=== PATIENT | female | born 1990 | race Caucasian/White ===

== ENCOUNTER → 2020-08-11 09:34 | Outpatient (CLI) | payer OTHER, MEDICAID, SELFPAY ==
[2020-08-11 10:44] LABS: Add Manual Diff / Slide Review NO; Basophils Absolute Auto 100 /uL (0-100); Basophils Percent Auto 0.7 % (0-2); Eosinophils Absolute Auto 600 /uL (0-450); Eosinophils Percent Auto 7.4 % (2-4); Hematocrit 35.6 % (36-46); Hemoglobin 12.2 g/dL (12.0-16.0); Lymphocytes Absolute Auto 1600 /uL (1100-4500); Lymphocytes Percent Auto 21.9 % (25-40); Mean Corpuscular HGB Conc 34.2 % (30-36); Mean Corpuscular Hemoglobin 30.6 PG (26-34); Mean Corpuscular Volume 89.6 fL (80-100); Monocytes Absolute Auto 600 /uL (0-900); Monocytes Percent Auto 7.8 % (3-14); Neutrophils Absolute Auto 4700 /uL (1500-7000); Neutrophils Percent Auto 62.2 % (50-75); Platelet Count 208 X10^3/uL (150-400); Red Blood Cell Count 3.97 X10^6/uL (4.0-5.2); Red Cell Distribution Width 12.7 % (11.6-14.8); White Blood Cell Count 7.5 X10^3/uL (4.5-11.0)
[2020-08-11 11:09] LABS: BUN Creatinine Ratio 12.3 (6-22); Blood Urea Nitrogen 9 mg/dL (7-17); Carbon Dioxide 24 mmol/L (22-32); Chloride 106 mmol/L (98-107); Estimated Glomerular Filt Rate > 60.0 mL/min (>60); Glucose 83 mg/dL (70-100); HEMOLYSIS < 15 (0-50); Sodium 137 mmol/L (137-145)
== END ==
PROVIDERS: PCP Family Medicine; Referring Provider Orthopaedic Surgery Orthopaedic Surgery of the Spine; Visit Provider Orthopaedic Surgery Orthopaedic Surgery of the Spine
DX: Z01.812 Encounter for preprocedural laboratory examination (principal)
CPT/HCPCS: 36415; 80048; 85025

== ENCOUNTER → 2020-08-25 08:26 | Outpatient (CLI) | payer OTHER, MEDICAID, SELFPAY ==
[2020-08-26 02:05] LABS: COVID19 Sendout Not Detected (Not Detect)
== END ==
PROVIDERS: PCP Family Medicine; Visit Provider Nurse Practitioner
DX: Z11.59 Encounter for screening for other viral diseases (principal)
CPT/HCPCS: 87635

== ENCOUNTER 2020-08-28 06:06 | Inpatient (IN) | payer OTHER, MEDICAID, SELFPAY ==
[2020-08-20 12:55] VITALS: BMI 27.6
[2020-08-28] VITALS (14 sets, daily range): BP systolic 106–133; BP diastolic 58–92; PULSE 80–98; RESP 8–16; TEMP 36.2–36.8; O2SAT 93–97; BMI 27.3
--- NOTE | 2020-08-28 | DI.RAD.S_ITS ---
PROCEDURE: XR CERVICAL SPINE 2V OR 3V INDICATIONS: ACDF C5-6 C6-7 TECHNIQUE: 3 view(s) of the cervical spine were acquired. COMPARISON: None. FINDINGS: Bones: Anterior fusion plating from C5 through C7 has been performed with interbody disc prosthesis devices at the 2 intervening levels. Soft tissues: No prevertebral soft tissue swelling. IMPRESSION: C5-C7 anterior fusion plating with interbody disc prosthesis devices at the 2 levels. Dictated by: Bib Carias M.D. on 08/28/2020 at 11:08 Approved by: Bib Carias M.D. on 08/28/2020 at 11:09
[2020-08-28] MEDS: LACTATED RINGERS 1,000 ML 42 ML IV ×2 (07:13→09:50)
--- NOTE | 2020-08-28 07:44 | PM.PREOP ---
Pre-operative Note COVID-19 COVID-19 status: Negative Result date/Date tested (Pos, Neg/Pending): 08/26/20 Interval Note History & Physical reviewed/Exam performed by Physician: Yes Changes to H&P: No
[2020-08-28] MEDS: ALBUTEROL 2.5 MG/3 ML NEB (ADULT) INH (07:46)
[2020-08-28] MEDS: CEFAZOLIN 2 GM/100 ML FROZ.PIGGY IV ×3 (08:00→23:33)
--- NOTE | 2020-08-28 08:39 | SUR.OPER ---
Supine on padded OR bed, head on donut, towel roll between shoulders vertically. Arms papoosed with gel pads. Surgeon taped from shoulders to foot of bed. Silk tape to secure patient's head. Legs uncrossed, safety belt at thigh, tape over blanket over lower legs.
[2020-08-28] MEDS: BUPIVACAINE 0.25% W/ EPI 30 ML VIAL INJ (10:45)
--- NOTE | 2020-08-28 10:56 | PM.OP.1 ---
Operative Date/Time/Diagnoses Date of procedure: 08/28/20 Time of procedure: 07:56 Pre-op diagnosis: 1. C5-6, C6-7 spinal stenosis 2. C5-6, C6-7 spondylosis with radiculopathy Post-op diagnosis: same Procedure & Clinicians Procedure: 1. C5-6 C6-7 anterior cervical diskectomy and fusion 2. C5-6 C6-7 anterior interbody cage placement 3. C5-6 C6-7 anterior instrumentation with plate and screw placement in C5-C6 and C7 vertebrae 4. Utilization of microsurgical technique and operating microscope Same procedure as scheduled: Yes Indications: Patient has been having chronic neck pain and worsening cervical radiculopathy. Patient failed multiple conservative management with worsening pain weakness and numbness in her upper extremity. Patient has been having difficulty performing activity of daily living. After discussing risks benefits of treatment options, patient elected proceed with surgery. Surgeon: Faustina Bee Information Technology Program Manager: Coco Ovalle Click Yes if Unassisted: No Anesthesia Type: General Operative Notes Closure Type: primary Specimen(s): none sent Prosthetic devices, grafts, tissues, transplants, or devices: Globus extend plate, PEEK cages Estimated Blood Loss (mL): 50 Blood products transfused: none Procedure in detail: Patient was seen in the preoperative area. Risks and benefits of the surgery was discussed with the patient. Operative consent was obtained and placed in the chart. Patient was then taken to the operative room. Prophylactic antibiotic was given less than 0.5 hr prior to skin incision. General anesthesia was administered. Patient was placed into a supine position on her radiolucent table. Bilateral shoulders were taped down to allow proper C-arm imaging. Anterior cervical area was prepped and draped in a sterile fashion. Time-out was performed at this time. Using lateral C-arm imaging, the level between C5 and C7 was identified and marked on patient's neck. A oblique incision from midline towards medial border of sternocleidomastoid muscle was made. The platysma muscle was incised in line with skin incision. Metzenbaum scissor was used to develop the plane between the medial border of sternocleidomastoid and the strap muscles medially. The carotid sheath and its contents were identified and protected behind the hand-held retractor during the entire case. The plane between the carotid sheath and strap muscles was developed with Metzenbaum scissors. Dissection was made down to the level of the anterior cervical fascia. Longus colli muscle was incised on the anterior aspect of vertebral bodies bilaterally from C5-C7. Spinal needle was placed into the C5-6 disc space and confirmed with lateral C-arm imaging. Using microsurgical technique and operative microscope, anterior cervical diskectomy was performed at C5-6 and C6-7 level. This was done by removing the disc material, removing the anterior and posterior osteophytes posterior longitudinal ligaments along with performing bilateral foraminotomies at both levels. Patient was found to have severe central and foraminal stenosis at both levels. Patient's stenosis was fully decompressed after decompression was completed. After the diskectomy was completed, 2 anterior interbody cages were obtained. The cages were packed with DBM bone grafting material. One cage each along with the bone grafting material was then packed into the interbody spaces from C5-C7 with one cage into each interbody level. After the cages were placed, the anterior cervical plate was stabilized to the C5-C7 vertebrae using 2 screws at each each level. Total 6 screws were placed. After confirming placement of the hardware with AP and lateral C-arm imaging, the screws were locked into the plate using the locking mechanism and torque limiting screwdriver. After the hardware was placed and confirmed with AP and lateral C-arm imaging, the wound was irrigated with sterile normal saline. The platysma muscle and the subcutaneous tissue was closed with 2-0 Vicryl. The skin was closed with 4-0 Monocryl and Steri-Strips. Patient tolerated the procedure well. Patient was transferred recovery room in stable condition. There were no complications. Complications: none Post-operative Condition: stable Disposition: PACU Plan for aftercare: Admit to inpatient hospital
--- NOTE | 2020-08-28 11:14 | SUR.PHASEI ---
1114 medicated x2 for pain by anesthesia on arrival for pain 5-04/15. Dozing intermittently.
[2020-08-28] MEDS: fentaNYL 100 MCG/2 ML INJ IV ×2 (11:26→11:40)
[2020-08-28] MEDS: ACETAMINOPHEN 325 MG TABLET 975 MG PO (11:44)
[2020-08-28] MEDS: OXYCODONE IR 5 MG TABLET PO ×4 (11:45→22:20)
[2020-08-28] MEDS: hydrOXYzine pamoate 25 MG CAPSULE PO ×3 (12:02→22:20)
--- NOTE | 2020-08-28 12:13 | SUR.PHASEI ---
Report called to GARY Serrano. Pt sitting up, looking at her phone. Two clothing bags to the room with her.
--- NOTE | 2020-08-28 12:26 | SUR.PHASEI ---
1213 to room 213, bed down and locked, call light within reach. SCD's. AC RN giving pt's glasses to her, pt has her phone. VSS. Pleasant, oriented, stable.
[2020-08-28] MEDS: SODIUM CHLORIDE 0.9% 1,000 ML 100 ML IV (13:39)
--- NOTE | 2020-08-28 15:37 | PC.NURSE ---
POST OP VSS, TAKING PO REGULAR DIET AND PO FLUIDS WITHOUT DIFFICULTY, NO TROUBLE WITH SWALLOWING, ANT NECK DRSG CDI. SOFT COLLAR IN PLACE. STABLE POST-OP.
[2020-08-28] MEDS: HYDROMORPHONE 0.5 MG INJ 0.2 MG IV ×2 (16:38→23:28)
--- NOTE | 2020-08-28 17:07 | PT.IIE ---
Current Diagnoses Other spondylosis with myelopathy, cervical region (08/28/20) Other spondylosis with radiculopathy, cervical region (08/28/20) Spinal stenosis, cervical region (08/28/20) Surgery Performed Operation Date: 08/28/20 07:45 Actual Procedures p C5-6,C6-7 ACDF w/anterior instrumentation - Faustina Bee MD Surgical History (Last Updated 08/20/20 @ 13:14 by Flora Gonzalez, RN) No history of previous surgery (Acute) [place] teeth removed (Acute) Medical History (Last Updated 08/20/20 @ 13:14 by Flora Gonzalez RN) Anxiety (Acute) Asthma (Acute) Eczema (Acute) GERD (gastroesophageal reflux disease) (Acute) Numbness and tingling (Acute) PTSD (post-traumatic stress disorder) (Acute) Spinal stenosis of cervical region (Acute) Spondylosis of cervical spine with radiculopathy (Acute) Physical Therapy Inpatient Evaluation/Re-Eval M1 PT/OT-IP Prior Functional Status Start: 08/28/20 14:33 Freq: NEEDED Status: Active Protocol: Document 08/28/20 15:38 DE (Rec: 08/28/20 16:42 DE [id number]) Medical Review Prior Functional Status Medical History Reviewed Yes Diet/Fluid Consistency Regular Communication WNL. No deficits noted. Able to make needs known. Mobility and Gait IND at baseline all mobility and amb without AD. Activities of Daily Living and IADL's IND at baseline with all ADLs and IADLs. Prior Functional Level (Other details) Pt reports she was very active prior to this first injury in 2018 Social History Household Members significant other,children Living Arrangements House Number of Floors (Floors) One Floor Number of Stairs To Enter/Railing? 2 platform ARLEY with no railing . No steps inside the house. Home Environment Standard Height Toilet,Walk in Shower,Built-In Shower Seat Home Equipment Hand Held Shower Employment Status Unemployed Additional Social History Comment Pt lives with her boyfriend and 3 children who are 14, 11, and 4 years old. Pt's boyfriend and 2 older children are available to assist if needed. M2 PT-IP Current Condition Start: 08/28/20 14:33 Freq: NEEDED Status: Active Protocol: Document 08/28/20 15:38 DE (Rec: 08/28/20 16:42 DE [id number]) Physical Therapy Current Condition Current Condition Evaluation Date 08/28/20 Treatment Diagnosis Cervical diskectomy and fusion C5-C7; weakness and numbness in UEs Onset Date 08/28/20 Precautions Cervical Spine Precautions Soft Collar for Comfort,No Heavy Lifting,Log Roll Weight Bearing Status Weight Bearing Status Full Weight Bearing M3 PT-IP Subjective Start: 08/28/20 14:33 Freq: NEEDED Status: Active Protocol: Document 08/28/20 15:38 DE (Rec: 08/28/20 16:42 DE [id number]) Subjective Physical Therapy Visit Type Type Initial Evaluation Visit Start Time 14:34 Visit Stop Time 15:15 Total Visit Minutes 41 Notes SPT Shahzad led tx session Under PT Quinn's direct supervision. Number of EVENT TECHNICIAN Visits 0 Physical Therapy Visit Comments Patient Comments I am doing okay Patient Goals To return home. Therapy Pain Assessment Location l neck Pain Behaviors Wincing M4 PT-IP Mobility and Gait Start: 08/28/20 14:33 Freq: NEEDED Status: Active Protocol: Document 08/28/20 15:38 DE (Rec: 08/28/20 16:42 DE [id number]) PT-Bed Mobility Assessment Rolling Type of Rolling Log Rolling Level of Assist Standby Assistance Supine to Sit Supine to Sit Standby Assistance Sit to Supine Sit to Supine Standby Assistance Scooting Scooting to Edge of Bed Standby Assistance PT-Transfer Assessment Sit to and From Stand Sit to and from Stand Standby Assistance Equipment Transfer Assistive Device Gait Belt Transfers Transfer Destination Bed Transfer Technique Stand Step Pivot Transfer Ability Level of Assist Standby Assistance Comments Mobility Comments Pt was lying supine in bed with HOB elevated without soft collar on her neck as PT and SPT arrived. Pt was instructed to wear it before mobilization and also recommended to use it for comfort but at all times in community. Pt performed log rolling to the L to sit up at the EOB with SBA and use of BUE pushing off the bed. BP at EOB was 132/74. Pt then stood up with SBA and use of BUE. Pt amb ~300 ft SBA with FWW and amb ~150 ft SBA without any AD throughout the entire session. Pt was steady and no signs of LOB. After walking ~ 450 ft, pt c/o fatigue. Pt denied dizziness or lightheadedness. Pt performed stair climbing up and down 1 platform step x2. Pt was not looking down at the step when she first tried and then was instructed to bend at the hips to look down at the step. Pt returned to the room and back in bed via log rolling from the L side of the bed. BP at EOB after mobilization was 113 /82. Call light placed within reach. Gait Assessment Gait Gait Assistance Required: Standby Assistance Distance (Feet) 450 Able to Maintain Weight Bearing Status Yes During Gait Assistive Devices Assistive Device Gait Belt,Front Wheeled Walker Orthotic/Prosthetic Devices or Brace: No Gait Deviations General Gait Pattern Within Normal Limits Factors Limiting Gait Function Factors Limiting Gait Function Limited Range of Motion Comments Gait Comments See mobility comments. Stair Climbing Assessment Evaluation Level of Assist On Stairs Standby Assistance Devices Stair Climbing Assistive Devices None Technique/Endurance Stair Climbing Direction Ascend and Descend Stair Climbing Technique Step to Step Number of Steps Climbed 1 Query Text: Stair Climbing Set # Repetitions (reps) 2 Comments Stair Climbing Comments See mobility comments. PT-Balance Assessment Sitting Balance and Reactions Static Sitting Balance Ability Normal Dynamic Sitting Balance Ability Normal Standing Balance and Reactions Static Standing Balance Ability Normal Dynamic Standing Balance Ability Good Device Used none M5 PT-IP Objective Assessments Start: 08/28/20 14:33 Freq: NEEDED Status: Active Protocol: Document 08/28/20 15:38 DE (Rec: 08/28/20 16:42 DE [id number]) Orientation Orientation/Cognition Level of Alertness Alert Orientation Name,Age,Birthday,Month,Date, Year,Day of Week,Place, Situation Language Function Ability No Deficits Noted Safety Awareness Understands Safety Issues Memory Description No Deficits Noted Comments No deficits noted. Gross Range of Motion Upper Extremity ROM Assessment Bilaterally Impaired Impairments B shoulder flexion = 90 deg d/ t pain Lower Extremity ROM Assessment Within Functional Limits Strength Upper Extremity Strength Assessment Bilaterally Impaired Shoulder B flexion 3+/5 with increased pain Elbow WFL Wrist WFL Hand WFL Lower Extremity Strength Assessment Within Functional Limits Coordination Assessment Gross Coordination Gross Coordination WNL Sensation Assessment Sensation Gross Sensation WNL Light Touch Intact Proprioception (Position) Intact Muscle Tone Muscle Tone WNL Yes M6 PT-IP Treatment Start: 08/28/20 14:33 Freq: NEEDED Status: Active Protocol: Document 08/28/20 15:38 DE (Rec: 08/28/20 16:42 DE [id number]) Physical Therapy Treatment Education Education Provided Precautions,Post-Op Packet, Safety M7 PT-IP Assessment and Plan Start: 08/28/20 14:33 Freq: NEEDED Status: Active Protocol: Document 08/28/20 15:38 DE (Rec: 08/28/20 16:42 DE [id number]) PT Summary Assessment and Plan Potential Rehabilitation Potential Excellent Status of Condition at Evaluation Stable Summary Impairments Pain,ROM,Strength,Bed Mobility ,Activity Tolerance Assessment Summary This is a low complexity evaluation for 30 yo female, Francia, s/p C5-6 and C6-7 anterior cervical diskectomy and fusion POD0. PLOF= IND at baseline for all mobility and amb without AD. CLOF= SBA with bed mobility, transfers, amb, and stairs without AD. She also has good understanding of post op precautions. Overall, pt is doing very well. Will d /c home with family assistance tomorrow once medically stable. Goals Bed Mobility Goal Independent Transfer Goal Independent Gait Goal Independent Other Goals 2 PF steps indepednently Frequency of Treatment Frequency Of Treatment Twice a Day Treatment Plan Physical Therapy Treatment Plan Bed Mobility Training,Transfer Training,Gait Training,Post Op Education,Discharge Planning Recommendations To Nursing Amount of Assist Needed Standby Assistance Discharge Recommendations PT Discharge Recommendations Home with Assistance Transportation Needs at Discharge Private Vehicle This IE note is written by JYOTI Bentley and reviewed and approved by Lorna Davis PT
[2020-08-28] MEDS: SENNOSIDES 8.6 MG TABLET 17.2 MG PO (19:14)
[2020-08-28] MEDS: DOCUSATE 100 MG CAPSULE PO (19:14)
[2020-08-28] MEDS: ALBUTEROL HFA 200 PUFF/18 GM INH (COVID POS/VENT PTS) INH (19:41)
[2020-08-29] MEDS: SODIUM CHLORIDE 0.9% 1,000 ML 100 ML IV (00:54)
[2020-08-29 03:10] VITALS: BP 124/90; PULSE 83; RESP 16; TEMP 36.7; O2SAT 97
[2020-08-29] MEDS: ALBUTEROL HFA 200 PUFF/18 GM INH (COVID POS/VENT PTS) INH (08:12)
[2020-08-29 08:16] VITALS: PULSE 83; RESP 16; O2SAT 97
[2020-08-29] MEDS: LORATADINE 10 MG TABLET PO (08:52)
[2020-08-29] MEDS: ACETAMINOPHEN 325 MG TABLET 650 MG PO (08:52)
[2020-08-29] MEDS: DOCUSATE 100 MG CAPSULE PO (08:52)
[2020-08-29] MEDS: FLUoxetine 20 MG CAPSULE PO (08:52)
[2020-08-29] MEDS: OXYCODONE IR 5 MG TABLET PO (08:52)
[2020-08-29] MEDS: INFLUENZA VACCINE 0.5 ML SYRINGE IM (08:56)
--- NOTE | 2020-08-29 09:05 | OT.IP.EVAL ---
Current Diagnoses Other spondylosis with myelopathy, cervical region (08/28/20) Other spondylosis with radiculopathy, cervical region (08/28/20) Spinal stenosis, cervical region (08/28/20) Surgery Performed Operation Date: 08/28/20 07:45 Actual Procedures p C5-6,C6-7 ACDF w/anterior instrumentation - Faustina Bee MD Past Medical History (Last Updated 08/20/20 @ 13:14 by Flora Gonzalez RN) Anxiety (Acute) Asthma (Acute) Eczema (Acute) GERD (gastroesophageal reflux disease) (Acute) Numbness and tingling (Acute) PTSD (post-traumatic stress disorder) (Acute) Spinal stenosis of cervical region (Acute) Spondylosis of cervical spine with radiculopathy (Acute) Surgical History (Last Updated 08/20/20 @ 13:14 by Flora Gonzalez RN) No history of previous surgery (Acute) [place] teeth removed (Acute) Occupational Therapy Inpatient Evaluation/Re-Eval M1 PT/OT-IP Prior Functional Status Start: 08/28/20 14:33 Freq: NEEDED Status: Active Protocol: Document 08/28/20 15:38 DE (Rec: 08/28/20 16:42 DE [id number]) Medical Review Prior Functional Status Medical History Reviewed Yes Diet/Fluid Consistency Regular Communication WNL. No deficits noted. Able to make needs known. Mobility and Gait IND at baseline all mobility and amb without AD. Activities of Daily Living and IADL's IND at baseline with all ADLs and IADLs. Prior Functional Level (Other details) Pt reports she was very active prior to this first injury in 2018 Social History Household Members significant other,children Living Arrangements House Number of Floors (Floors) One Floor Number of Stairs To Enter/Railing? 2 platform ARLEY with no railing . No steps inside the house. Home Environment Standard Height Toilet,Walk in Shower,Built-In Shower Seat Home Equipment Hand Held Shower Employment Status Unemployed Additional Social History Comment Pt lives with her boyfriend and 3 children who are 14, 11, and 4 years old. Pt's boyfriend and 2 older children are available to assist if needed. M1 PT/OT-IP Prior Functional Status Start: 08/29/20 09:25 Freq: NEEDED Status: Active Protocol: Document 08/29/20 09:27 RM (Rec: 08/29/20 09:36 RM [id number]) Medical Review Prior Functional Status Medical History Reviewed Yes Diet/Fluid Consistency Regular Communication WNL. No deficits noted. Able to make needs known. Mobility and Gait IND at baseline all mobility and amb without AD. Activities of Daily Living and IADL's IND at baseline with all ADLs. Able to do some IADLs with limitations d/t decreased boarding room fixer strength and difficulty lifting. Prior Functional Level (Other details) Pt reports she was very active prior to this first injury in 2018 Social History Household Members significant other,children Living Arrangements House Number of Floors (Floors) One Floor Number of Stairs To Enter/Railing? 2 platform ARLEY with no railing . No steps inside the house. Home Environment Standard Height Toilet,Walk in Shower,Built-In Shower Seat Home Equipment Hand Held Shower Employment Status Unemployed Additional Social History Comment Pt lives with her boyfriend and 3 children who are 14, 11, and 4 years old. Pt's boyfriend and 2 older children are available to assist if needed. M2 OT-IP Current Condition Start: 08/29/20 09:25 Freq: Status: Active Protocol: Document 08/29/20 09:27 RM (Rec: 08/29/20 09:36 RM [id number]) Occupational Therapy Current Condition Current Condition Evaluation Date 08/29/20 Treatment Diagnosis C5-7 ACDF Diagnosis Onset Date 08/28/20 Post Operative Precautions Cervical Spine Precautions Soft Collar for Comfort,No Heavy Lifting,Log Roll Weight Bearing Status Weight Bearing Status Weight Bear as Tolerated M3 OT- IP Subjective and Pain Start: 08/29/20 09:25 Freq: Status: Active Protocol: Document 08/29/20 09:27 RM (Rec: 08/29/20 09:36 RM [id number]) OT- Subjective Occupational Therapy Visit Type Type Initial Evaluation Visit Start Time 09:05 Visit Stop Time 09:25 Total Visit Minutes 20 Occupational Therapy Visit Comments Patient Comments I'm feeling pretty steady. Patient/Caregiver Goals return home OT Pain Assessment Pain When Pain Assessed At Rest Pain Present Pain Present Pain Reported FLACC Pain Scale Face No particular expression Legs Normal position; relaxed Activity Quiet, moves easily Cry No cry (awake or asleep) Consolability Content, relaxed FLACC Total 0 Location l neck Intensity 3 Scale Used Numeric (0 - 10) Management Techniques Timing of Activity with Medications M4 OT- IP ADL's Start: 08/29/20 09:25 Freq: Status: Active Protocol: Document 08/29/20 09:27 RM (Rec: 08/29/20 09:36 RM [id number]) OT [id number]-[id number] General Evaluation Self-Feeding Ability Independent OT ADL-Grooming General Evaluation Grooming Ability Independent OT ADL-Dressing General Eval Upper Body Dressing Ability Independent Lower Body Dressing Ability Independent OT ADL-Toileting General Evaluation Toileting Ability Independent M5 OT- IP IADL's Start: 08/29/20 09:25 Freq: Status: Active Protocol: Document 08/29/20 09:27 RM (Rec: 08/29/20 09:36 RM [id number]) OT-Instrumental Activities of Daily Living Home Safety Awareness Awareness of Need for Assistance at Home Good Awareness Ability to Problem Solve Emergency Able to Problem Solve Situations M6 OT- IP Functional Cognition Start: 08/29/20:25 Freq: Status: Active Protocol: Document 08/29/20:27 RM (Rec: 08/29/20 09:36 RM [id number]) Cognitive Factors Limiting Selfcare Function Cognitive Ability Level of Alertness Alert Patient Orientation Name,Age,Birthday,Month,Date, Year,Day of Week,Place, Situation Attention Span Ability Capable of Focused Attention, Capable of Sustained Attention Ability to Follow Commands Able to Follow Multi-Step Commands Memory Description No Deficits Noted Safety Awareness No Deficits Noted Problem Solving Ability No deficits Noted Executive Function Ability No Deficits Noted Abstract Thinking Ability No Deficits Noted OT- Vision and Hearing OT- Hearing Assessment OT- Hearing Assessment WFL OT- Vision Assessment Visual Acuity WFL,Glasses For Reading M7 OT- IP Mobility and Balance Start: 08/29/20:25 Freq: Status: Active Protocol: Document 08/29/20 09:27 RM (Rec: 08/29/20 09:36 RM [id number]) OT- Bed Mobility Assessment Rolling Type of Rolling Log Rolling Level of Assistance Independent Supine to Sit Supine to Sit Assist Independent Sit to Supine Sit to Supine Assist Independent Scooting Scooting to Edge of Bed Independent OT-Transfer Assessment Sit to and From Stand Sit to and from Stand Independent Transfers Transfer Ability Independent OT- Gait Assessment Gait Gait Assistance Required: Independent Assistive Devices Assistive Device None OT- Balance Assessment Sitting Balance and Reactions Static Sitting Balance Ability Normal Dynamic Sitting Balance Ability Normal Standing Balance and Reactions Static Standing Balance Ability Normal Dynamic Standing Balance Ability Normal M8 OT- IP Objective Assessments Start: 08/29/20 09:25 Freq: Status: Active Protocol: Document 08/29/20 09:27 RM (Rec: 08/29/20 09:36 RM [id number]) OT Gross Range of Motion Upper Extremity Range of Motion Assessment Within Functional Limits OT Strength Upper Extremity Strength Assessment Within Functional Limits Hand Auto Damage Adjuster Strength Hand Dominance Right M9 OT- IP Assessment and Plan Start: 08/29/20 09:25 Freq: Status: Active Protocol: Document 08/29/20 09:27 RM (Rec: 08/29/20 09:36 RM [id number]) OT Summary Assessment and Plan Potential Rehabilitation Potential Good Analytic Complexity at Evaluation Low Summary OT Impairments Pain Progress Towards Goals Safe For Discharge Frequency of Treatment Frequency Of Treatment Discharge Discharge Recommendations OT Discharge Recommendations Home with Assistance Home Equipment Needs discussed benefit of pants closer, pt to pursue on her own if interested
--- NOTE | 2020-08-29 09:42 | PM.PNPO.1 ---
Subjective Subjective Date Patient Seen: 08/29/20 Time Patient Seen: 09:42 Interval history: POD #1 s/p C5-[address] Bee. Patient doing well this morning. She does complain of some anterior neck pain and posterior muscle spasms. No difficulty swallowing. Exam Vital Signs (past 8 hours): - 08/29/20 03:10 08/29/20 08:16 Temperature 98.0 F Pulse Rate 83 83 Respiratory Rate 16 16 Blood Pressure 124/90 Pulse Oximetry 97 97 Oxygen Delivery Method Room Air Oxygen Flow Rate 0 Narrative Exam Narrative: Patient is sitting up in bed in no acute distress. She is alert orient x3. Calves are soft, compressible, nontender bilaterally. Spiral Winding Machine Helper strength strong equal. Her numbness in arm went away last night. Dressing on neck is CDI although it is holding her skin a bit causing her to lose a little bit of motion. Assessment & Plan Post-op Postoperative Procedures: Procedures Operation Date: 08/28/20 07:45 Actual Procedures Side Surgeon p C5-6,C6-7 ACDF w/anterior instrumentation Faustina Bee MD patient will continue work with physical therapy. No excessive bending, lifting, or twisting. Continue current pain control.Nursing will put a new dressing on prior to discharge. Plan to discharge home today.
[2020-08-29 10:22] VITALS: BP 117/85; PULSE 77; RESP 15; TEMP 36.8; O2SAT 98
--- NOTE | 2020-08-29 10:46 | CM.DANOTE ---
DCP: Case received, EMR reviewed and met with patient. Introduced self and role. Was able to obtain information from patient regarding her baseline activity status prior to hospitalization. DCP assessment completed with information currently available. Patient is a 30 year old female who admitted yesterday morning to the care of the orthopedic tean. PCP: Dr. Ellis. Payer: confirmed: [facility]. Patient came to the hospital for a surgical procedure. She had a C5-6, C6-7 diskectomy. Patient has had history of spinal stenosis. Met with patient in her room. She was sitting up in bed, alert and oriented, independent at baseline. Stated that her significant other, Shiv Nur, will be assisting her at home when she is discharged. P: DCP to continue to follow. Patient should be able to go home when she is medically stable. Elham Gray RN/Director Of Adult Epilepsy
[2020-08-29 10:52] LABS: Hemoglobin 11.2 g/dL (12.0-16.0); Mean Corpuscular Hemoglobin 29.9 PG (26-34); Mean Corpuscular Volume 90.3 fL (80-100); Platelet Count 198 X10^3/uL (150-400); Red Blood Cell Count 3.76 X10^6/uL (4.0-5.2); Red Cell Distribution Width 12.7 % (11.6-14.8); White Blood Cell Count 11.7 X10^3/uL (4.5-11.0)
--- NOTE | 2020-08-29 11:06 | PT-IP ANOTE ---
Pt states she feels well and does not need PT
[2020-08-29 11:35] VITALS: O2SAT 98
--- NOTE | 2020-08-29 12:06 | PC.NURSE ---
PATIENT PAIN IS WELL CONTROLLED. DRSG TO ANTERIOR NECK CHANGED PER ORDER. STERI-STRIP UNDERNEATH CDI. APPLIED NEW 4X4 FOLDED AND TEGADERM. SCRIPTS PROVIDED TO PATIENT, MARISA CONFIRMS UNDERSTANDING OF ALL DC HOME INSTRUCTIONS. TAKEN BY WC WITH ALL BELONGINGS AND ASSESSMENT DIRECTOR ESCORT TO VEHICLE WHERE HER RIDE HOME IS WAITING.
== END 2020-08-29 12:08 | disposition home or self-care (01) | DRG 321 ==
PROVIDERS: Physician Assistant Surgical; Admitting Provider Orthopaedic Surgery Orthopaedic Surgery of the Spine; PCP Family Medicine; Referring Provider Family Medicine; Visit Provider Orthopaedic Surgery Orthopaedic Surgery of the Spine
PROC: 0RG20A0 Fusion of 2 or more Cervical Vertebral Joints with Interbody Fusion Device, Anterior Approach, Anterior Column, Open Approach (ICD-10-PCS; principal; 2020-08-28 07:45)
DX: M48.02 Spinal stenosis, cervical region (principal); M47.22 Other spondylosis with radiculopathy, cervical region; J45.909 Unspecified asthma, uncomplicated; F41.9 Anxiety disorder, unspecified; F43.10 Post-traumatic stress disorder, unspecified; K21.9 Gastro-esophageal reflux disease without esophagitis; F32.9 Major depressive disorder, single episode, unspecified; M62.838 Other muscle spasm
CPT/HCPCS: 36415; 72040; 76000; 85027; 90471; 90656; 94640; 94760; 97116; 97161; 97165; 97535; C1776; A9270; J0330; J0690; J1100; J1170; J2250; J2405; J2704; J3010; J7613; Q2038